=== PATIENT | male | born 1955 | race Caucasian/White ===

== ENCOUNTER 2018-03-03 13:36 | Inpatient (IN) | payer BC ==
[~2018-03-03] VITALS: Ht 188 cm; Wt 92.4 kg
[~2018-03-03 13:36] MED LIST: ALBU18HF PO; TAMS0.4C2 PO; TIOT18CA INH
[2018-03-03] MEDS ORDERED: LACTATED RINGERS 1,000 ML IV SCH (14:04)
[2018-03-03] MEDS ORDERED: GABAPENTIN 300 MG CAPSULE PO ONE (14:30)
[2018-03-03] MEDS ORDERED: OxyconTIN ER 10 MG TAB.ER PO ONE (14:30)
[2018-03-03] MEDS ORDERED: ACETAMINOPHEN 500 MG TABLET PO ONE (14:30)
[2018-03-03 14:43] VITALS: BP 135/87
[2018-03-03] MEDS ORDERED: LIDOCAINE-MPF 1%, 2ML ONE (14:50)
[2018-03-03] MEDS ORDERED: EPINEPHRINE 1 MG/ML, 1ML ONE (15:08)
[2018-03-03] MEDS ORDERED: BUPIVACAINE/PF 0.5% ONE (15:08)
[2018-03-03] MEDS ORDERED: MIDAZOLAM 1 MG/ML, 2ML ONE (15:51)
[2018-03-03] MEDS ORDERED: FENTANYL PF 100 MCG/2ML ONE ×2 (15:51→19:23)
[2018-03-03] MEDS ORDERED: VASOPRESSIN 20 UNIT/ML, 1ML ONE (16:05)
[2018-03-03] MEDS ORDERED: DEXAMETHASONE 4 MG/ML, 1ML ONE (16:05)
[2018-03-03] MEDS ORDERED: SUCCINYLCHOLINE 20 MG/ML, 10ML ONE (16:05)
[2018-03-03] MEDS ORDERED: CEFAZOLIN 1,000 MG ONE (16:05)
[2018-03-03] MEDS ORDERED: PHENYLEPHRINE 10 MG/ML ONE (16:05)
[2018-03-03] MEDS ORDERED: PROPOFOL 10 MG/ML, 20ML ONE (16:05)
[2018-03-03] MEDS ORDERED: EPHEDRINE 50 MG/ML, 1ML ONE (16:05)
[2018-03-03] MEDS ORDERED: ACETAMINOPHEN 325 MG TABLET PO PRN (17:00)
[2018-03-03] MEDS ORDERED: LABETALOL 5MG/ML, 20ML IV PRN (17:00)
[2018-03-03] MEDS ORDERED: OXYcodone 5 MG/5 ML ORAL.SOL UDC PO PRN (17:00)
[2018-03-03] MEDS ORDERED: MORPHINE SULFATE 4 MG/ML, 1ML IVPush PRN (17:00)
[2018-03-03] MEDS ORDERED: PROMETHAZINE 25 MG/ML, 1ML IV PRN (17:00)
[2018-03-03] MEDS ORDERED: ONDANSETRON ODT 8 MG PO PRN (17:00)
[2018-03-03] MEDS ORDERED: FENTANYL PF 100 MCG/2ML IV PRN (17:00)
[2018-03-03] MEDS ORDERED: ALBUTEROL SULFATE 2.5 MG/3 ML NPPB PRN (17:00)
[2018-03-03] MEDS ORDERED: hydrALAzine 20 MG/ML, 1ML IV PRN (17:00)
[2018-03-03] MEDS ORDERED: THROMBIN 5,000 UNIT VIAL TP ONE (18:10)
[2018-03-03] MEDS ORDERED: OXYcodone 5 MG/5 ML ORAL.SOL UDC ONE (18:54)
[2018-03-03] MEDS ORDERED: ACETAMINOPHEN 650 MG/20.3 ML UDC ONE (18:54)
[2018-03-03] MEDS ORDERED: HYDROmorphone 1 MG/ML, 1ML ONE (19:10)
[2018-03-03] MEDS: HYDROmorphone 1 MG/ML, 1ML IV PRN ×2 (19:13→19:18)
[2018-03-03] MEDS ORDERED: morphine SULFATE 10 MG/ML, 1ML IVPush PRN (21:30)
[2018-03-03] MEDS ORDERED: ONDANSETRON 2MG/ML, 2ML IVPush PRN (21:30)
[2018-03-03] MEDS ORDERED: IPRATROPIUM 0.5 MG/2.5 ML INHA NPPB PRN (21:30)
[2018-03-03] MEDS: OXYcodone/APAP 5/325MG TABLET PO PRN (23:21)
[2018-03-03 23:38] VITALS: BP 99/66
[2018-03-04 03:41] VITALS: BP 116/73
[2018-03-04] MEDS: OXYcodone/APAP 5/325MG TABLET PO PRN ×2 (03:47→08:17)
[2018-03-04 05:22] LABS: BASOPHILS # (AUTO) 0.01 x10^3/uL (0-0.1); BASOPHILS % (AUTO) 0 % (0-1); EOSINOPHILS # (AUTO) 0.02 x10^3/uL (0-0.4); EOSINOPHILS % (AUTO) 0 % (1-7); LYMPHOCYTES # (AUTO) 1.19 x10^3/uL (1-3.4); LYMPHOCYTES % (AUTO) 10 % (22-44); MD NO; MEAN CORPUSCULAR HEMOGLOBIN 30.6 pg (27.5-34.5); MEAN CORPUSCULAR HGB CONC 34.1 g/dL (33.2-36.2); MEAN CORPUSCULAR VOLUME 89.6 fL (81-97); MEAN PLATELET VOLUME 8.8 fL (7.4-10.4); MONOCYTES # (AUTO) 0.56 x10^3/uL (0.2-0.8); MONOCYTES % (AUTO) 5 % (2-9); NEUTROPHILS # (AUTO) 10.07 x10^3/uL (1.8-6.8); NEUTROPHILS % (AUTO) 85 % (42-75); PLATELET COUNT 210 x10^3/uL (130-400); RED BLOOD COUNT 4.43 x10^6/uL (4.38-5.82); RED CELL DISTRIBUTION WIDTH 13.4 % (9.4-14.8)
[2018-03-04 05:32] LABS: CALCIUM 7.8 mg/dL (8.5-10.1); CHLORIDE 107 mmol/L (98-107)
[2018-03-04 05:38] LABS: ALANINE AMINOTRANSFERASE 22 U/L (12-78); ALBUMIN 3.4 g/dL (3.4-5.0); ALKALINE PHOSPHATASE 71 U/L (45-117); ANION GAP 7 mmol/L (5-15); BILIRUBIN,TOTAL 0.6 mg/dL (0.2-1.0); CREATININE 1.01 mg/dL (0.7-1.3); TOTAL PROTEIN 6.3 g/dL (6.4-8.2)
[2018-03-04 07:23] VITALS: BP 141/80
[2018-03-04] MEDS ORDERED: OXYC-302 PO (08:59)
[2018-03-04] MEDS ORDERED: TAMSULOSIN 0.4 MG CAP.ER.24H PO SCH (09:00)
== END 2018-03-04 09:42 | disposition home or self-care (01) | DRG 627 ==
LOC: SDC 13:36 → 4NOR 20:29 → SDC 23:43 → 4NOR 23:43 → DCLOUNGE 03-04 09:33
PROVIDERS: ADMIT Surgery; ATTEND Surgery
PROC: 0GTG0ZZ Resection of Left Thyroid Gland Lobe, Open Approach (ICD-10-PCS; principal; 2018-03-03 15:30)
DX: E04.1 Nontoxic single thyroid nodule (principal); N40.0 Benign prostatic hyperplasia without lower urinary tract symptoms; J44.9 Chronic obstructive pulmonary disease, unspecified; Z80.9 Family history of malignant neoplasm, unspecified; Z87.891 Personal history of nicotine dependence; Z90.49 Acquired absence of other specified parts of digestive tract
CPT/HCPCS: 36415; 80053; 82962; 85025; 88307; 93005; J0171; J0690; J1100; J1170; J2250; J2704; J3010; J3490; J0330; J2370; J7120

== ENCOUNTER → 2018-11-18 | Outpatient (CLI) | payer MEDICARE, BC ==
[~2018-11-18] MED LIST changes: +OXYC-302 PO
== END | disposition home or self-care (01) ==
LOC: CFH 11:46
PROVIDERS: ATTEND Nurse Practitioner Family
DX: Z12.2 Encounter for screening for malignant neoplasm of respiratory organs (principal); Z87.891 Personal history of nicotine dependence; Z79.899 Other long term (current) drug therapy; Z72.89 Other problems related to lifestyle
CPT/HCPCS: G0297

== ENCOUNTER → 2020-11-19 | Outpatient (CLI) | payer MEDICARE, BC ==
[~2020-11-19] MED LIST changes: -OXYC-302 PO; +OXYC1TAB14 PO
== END | disposition home or self-care (01) ==
LOC: CFH 10:03
PROVIDERS: ATTEND Nurse Practitioner Family
DX: Z12.2 Encounter for screening for malignant neoplasm of respiratory organs (principal); Z87.891 Personal history of nicotine dependence; I25.10 Atherosclerotic heart disease of native coronary artery without angina pectoris
CPT/HCPCS: 71271